=== PATIENT | female | born 1990 | race Caucasian/White ===

== ENCOUNTER 2019-04-19 00:53 | Inpatient (IN) ==
[2019-04-19] MEDS: RINGER'S SOLUTION,LACTATED 1,000 ML IV ONE ×2 (01:35→12:38)
[2019-04-19] MEDS ORDERED: LIDOCAINE HCL 50 ML VIAL PERI PRN (01:51)
[2019-04-19] MEDS ORDERED: OXYTOCIN/DEXTROSE 5%-WATER 30 UNITS/500 ML BAG IV ONE ×2 (01:51→14:27)
[2019-04-19] MEDS ORDERED: LIDOCAINE HCL/EPINEPHRINE 20 ML VIAL IJ ONE (01:55)
[2019-04-19] MEDS ORDERED: BUPIVACAINE HCL/0.9 % NACL/PF 250 ML EP PRN (01:56)
[2019-04-19] MEDS ORDERED: ONDANSETRON HCL/PF 2 MG/ML VIAL IV PRN (01:56)
[2019-04-19] MEDS ORDERED: NALOXONE HCL 1 MG/1 ML SYRG IV PRN (01:56)
[2019-04-19] MEDS ORDERED: BUPIVACAINE HCL/PF 30 ML VIAL EP SCH (02:00)
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
[2019-04-19] MEDS ORDERED: LIDOCAINE HCL/EPINEPHRINE 20 ML VIAL ONE (06:26)
--- NOTE | 2019-04-19 06:40 | ANES ---
Post Anesthesia Assessment - Vital Signs Vitals: Last Vital Signs Temp 36.9 C 04/19/19 01:31 Pulse 106 H 04/19/19 01:31 Resp 16 04/19/19 01:31 BP 125/80 04/19/19 01:31 Pulse Ox 97 04/19/19 01:31 Airway Patency: Normal - Mental Status Level Of Consciousness: Awake - N/V Assessment Nausea/Vomiting Presence: None Dehydration:: No
--- NOTE | 2019-04-19 06:40 | ANES ---
Anesthesia Procedure Note Procedure Note: ANESTHESIA PROCEDURE NOTE Date of Procedure: 04/19/2019. Time of procedure: 624. Performed by: Seymour Cazares CRNA Vacuum Repairer: None. Preprocedure diagnosis: Active labor. Post procedure diagnosis: Same. Procedure: Insertion of labor epidural. Indications: The patient is a 28 -year-old female in active labor requesting labor epidural for pain management. Findings: See below. Details of the procedure: The patient was placed in a sitting position. DuraPrep as well as Betadine swabs X3 was applied to the patient's back. Patient was then draped in a sterile fashion. Lidocaine 1% was infiltrated to the skin and subcutaneous tissues at the level of the L3-4 interspace. The epidural space was identified using a 18-gauge Tuohy needle with [id number] technique. Epidural catheter was inserted to a depth of 11 centimeters at skin. Negative test dose was elicited using 3 mL of 1.5% preservative-free lidocaine plus epinephrine 1 200,000. The epidural catheter was then taped and secured in place. A loading dose of 8 mL of 0.25% preservative-free bupivacaine was administered to the epidural catheter after negative aspiration for blood and CSF. EBL: Minimal. Fluids: N/A. Specimen: N/A. Post procedure condition: The patient tolerated the procedure well. No complications were noted. Thank you for this consultation. Seymour Cazares CRNA
[2019-04-19] MEDS ORDERED: RINGER'S SOLUTION,LACTATED 1,000 ML IV PRN (12:39)
--- NOTE | 2019-04-19 13:41 | PN ---
Progess Note - Interim Date: 04/19/19 Time: 13:37 Narrative: 04/19/19 13:37 Patient feeling more pressure Vital signs stable. Pitocin at 16 mu/min. FHT: 140 baseline, good beat to beat variability with accelerations and moderate to severe decelerations with contractions Contractions q 3 min with couplets Cervix: 8/90/-1 Impression: Intrauterine at 38-6/7 weeks in labor, spontaneous rupture of membranes now 14 hours Plan: Anticipate normal spontaneous vaginal delivery soon
--- NOTE | 2019-04-19 14:22 | OR ---
Operative Report - Dictated Report Narrative: Spontaneous vaginal delivery of vigorously crying viable female at 1403 on 04/19/2019 with Apgars 8 and 9, weighing 2837 g in MELINA position with tight nuchal cord 1 and left arm at face presentation. Cord clamping delayed approximately 1 minute Placenta delivered complete, intact, with three vessel cord Estimated blood loss: less than 50 ml Anesthesia: epidural Lacerations: None History for MU History for Definition: * The number of deliveries resulting in a live the patient experienced prior to current hospitalization * The previous delivery of live twins or any live multiple gestation is considered one live event. *If primagravida or nulliparous is documented select zero for the number of previous live births. Live Events: Live Events: 4
[2019-04-19] MEDS ORDERED: SENNOSIDES 8.6 MG TABLET PO PRN (14:27)
[2019-04-19] MEDS ORDERED: IBUPROFEN 800 MG TABLET PO PRN (14:27)
[2019-04-19] MEDS ORDERED: GLYCERIN/WITCH HAZEL LEAF 40 APPL BOX TP PRN (14:27)
[2019-04-19] MEDS ORDERED: BENZOCAINE/MENTHOL 81 SPRAY CAN TP PRN (14:27)
[2019-04-19] MEDS ORDERED: BISACODYL 10 MG SUPP.RECT RC PRN (14:27)
[2019-04-19] MEDS ORDERED: HYDROCORTISONE 30 APPL TUBE TP PRN (14:27)
[2019-04-19] MEDS: oxyCODONE HCL/ACETAMINOPHEN 1 TAB TABLET PO PRN ×3 (16:56→23:21)
[2019-04-19] MEDS: IBUPROFEN 800 MG TABLET PO PRN ×2 (16:57→23:21)
[2019-04-19] MEDS: DOCUSATE SODIUM 100 MG CAPSULE PO SCH (20:09)
[2019-04-20] MEDS: oxyCODONE HCL/ACETAMINOPHEN 1 TAB TABLET PO PRN ×4 (04:18→20:28)
[2019-04-20] MEDS: IBUPROFEN 800 MG TABLET PO PRN ×2 (08:24→16:01)
[2019-04-20] MEDS: FERROUS SULFATE 325 MG TABLET PO SCH (08:24)
[2019-04-20] MEDS: DOCUSATE SODIUM 100 MG CAPSULE PO SCH ×2 (08:25→20:28)
[2019-04-20] MEDS ORDERED: NON-FORMULARY 1 DOSE DOSE (Ferrous Sulfate [Iron] 325 MG) PO SCH (09:00)
[2019-04-20] MEDS ORDERED: MULTIVITAMIN PO SCH (09:00)
--- NOTE | 2019-04-20 11:13 | PN ---
Subjective - Date and Time Seen Date: 04/20/19 Time: 11:12 Objective - Vitals Vitals: Last Vital Signs Temp 36.2 C 04/20/19 07:57 Pulse 77 04/20/19 07:57 Resp 18 04/20/19 07:57 BP 110/74 04/20/19 07:57 Pulse Ox 98 04/20/19 07:57 Patient denies complaints. Breast-feeding Lochia wnl Abdomen - soft, nontender Uterus - firm, at umbilicus - 1 No calf tenderness Impression: day #1 - s/p spontaneous vaginal delivery. Plan: Continue routine care Assessment/Plan - Problems/Diagnosis (1) SROM (spontaneous rupture of membranes) Problem: Acute (2) Anemia Problem: Acute Qualifiers: Anemia type: iron deficiency Iron deficiency anemia type: inadequate dietary iron intake Qualified Code(s): D50.8 - Other iron deficiency anemias (3) History of shoulder dystocia in prior Problem: Acute
[2019-04-20] MEDS: MULTIVITAMINS 1 TAB TAB.CHEW PO SCH (16:04)
[2019-04-21] MEDS: IBUPROFEN 800 MG TABLET PO PRN ×2 (02:48→08:10)
[2019-04-21] MEDS: FERROUS SULFATE 325 MG TABLET PO SCH ×2 (08:09→16:10)
[2019-04-21] MEDS: DOCUSATE SODIUM 100 MG CAPSULE PO SCH (08:10)
[2019-04-21] MEDS: oxyCODONE HCL/ACETAMINOPHEN 1 TAB TABLET PO PRN (08:10)
[2019-04-21 08:41] VITALS: BP 134/66
--- NOTE | 2019-04-21 09:13 | PN ---
Subjective - Date and Time Seen Date: 04/21/19 Time: 09:13 Objective - Vitals Vitals: Last Vital Signs Temp 36.8 C 04/21/19 08:15 Pulse 83 04/21/19 08:15 Resp 20 04/21/19 08:15 BP 134/66 04/21/19 08:15 Pulse Ox 98 04/21/19 08:15 Patient denies complaints. Breast-feeding well Lochia wnl Abdomen - soft, nontender Uterus - firm, at umbilicus - 2 No calf tenderness Impression: day #2 - s/p spontaneous vaginal delivery. Plan: Routine discharge instructions Assessment/Plan - Problems/Diagnosis (1) SROM (spontaneous rupture of membranes) Problem: Acute (2) Anemia Problem: Acute Qualifiers: Anemia type: iron deficiency Iron deficiency anemia type: inadequate dietary iron intake Qualified Code(s): D50.8 - Other iron deficiency anemias (3) History of shoulder dystocia in prior Problem: Acute
[2019-04-21] MEDS: MULTIVITAMINS 1 TAB TAB.CHEW PO SCH (16:10)
== END 2019-04-21 11:10 | disposition home or self-care (01) | DRG 807 ==
LOC: OB 00:53
PROVIDERS: ADMIT Obstetrics & Gynecology; ATTEND Obstetrics & Gynecology
CPT/HCPCS: 59025